=== PATIENT | male | born 1970 | race Caucasian/White ===

== ENCOUNTER → 2017-04-15 | Outpatient (CLI) | payer SELFPAY | LOC: M LRY 14:54 | DX: R05 Cough (principal) ==

== ENCOUNTER → 2019-08-19 | Outpatient (CLI) | payer OTHER ==
--- NOTE | 2019-08-19 23:32 | REP ---
RIGHT 5TH DIGIT: Four views of the right 5th digit are performed. There is a comminuted intra-articular fracture of the distal phalanx. There is associated soft tissue swelling. No other fracture or dislocation is seen. Electronically Signed by Tucker Gil MD 08/20/2019 01:40 P
== END ==
LOC: M LRY 16:02
PROVIDERS: ATTEND Physician Assistant
DX: S62.630A Displaced fracture of distal phalanx of right index finger, initial encounter for closed fracture (principal); W23.1XXA Caught, crushed, jammed, or pinched between stationary objects, initial encounter; Y92.9 Unspecified place or not applicable

== ENCOUNTER → 2020-04-26 | Outpatient (CLI) | payer SELFPAY | LOC: M LABSMTC 08:27 | PROVIDERS: ATTEND Pediatrics | DX: Z20.822 Contact with and (suspected) exposure to COVID-19 (principal) ==

== ENCOUNTER → 2020-06-03 | Outpatient (CLI) | payer SELFPAY | LOC: M LABSMTC 11:35 | PROVIDERS: ATTEND Pediatrics | DX: Z11.52 Encounter for screening for COVID-19 (principal) ==

== ENCOUNTER 2022-02-19 07:05 | Emergency (ER) | payer OTHER ==
[~2022-02-19] VITALS: Ht 172.7 cm; Wt 64.0 kg
[2022-02-19 08:37] VITALS: BP 132/81
== END 2022-02-19 08:40 | disposition home or self-care (01) ==
LOC: M ED 07:05
DX: S50.02XA Contusion of left elbow, initial encounter (principal); M25.722 Osteophyte, left elbow; M70.22 Olecranon bursitis, left elbow; W01.10XA Fall on same level from slipping, tripping and stumbling with subsequent striking against unspecified object, initial encounter; Y99.0 Civilian activity done for income or pay

== ENCOUNTER → 2023-01-13 | Outpatient (REF) ==
[2023-01-16 14:08] LABS: HERPES ZOSTER, VARICELLA IgG <135 index (Immune >165); RUBEOLA IgG ANTIBODY 17.2 AU/mL (Immune >16.4)
== END ==
LOC: M LAB 14:12
PROVIDERS: ATTEND Nurse Practitioner Adult Health
DX: Z01.89 Encounter for other specified special examinations (principal)

== ENCOUNTER 2023-08-21 08:32 | Emergency (ER) | payer OTHER, SELFPAY ==
[~2023-08-21] VITALS: Ht 172.7 cm; Wt 63.0 kg
[2023-08-21 08:32] VITALS: BP 125/82; TEMP 97.6; O2SAT 97
== END 2023-08-21 11:37 | disposition left against medical advice (07) ==
LOC: M ED 08:32
DX: Z53.21 Procedure and treatment not carried out due to patient leaving prior to being seen by health care provider (principal)

== ENCOUNTER 2023-11-28 21:47 | Emergency (ER) | payer SELFPAY ==
[~2023-11-28] VITALS: Ht 172.7 cm; Wt 61.8 kg
[2023-11-28 21:49] VITALS: BP 116/73; TEMP 98.3; O2SAT 96
== END 2023-11-29 01:45 | disposition left against medical advice (07) ==
LOC: M ED 21:47
DX: Z53.21 Procedure and treatment not carried out due to patient leaving prior to being seen by health care provider (principal)